=== PATIENT | female | born 2000 | race Caucasian/White ===

== ENCOUNTER 2021-10-14 13:16 | Emergency (ER) | payer BC, OTHER, MEDICAID, SELFPAY ==
[2021-10-14 13:24] VITALS: BP 116/61; PULSE 94; RESP 16; TEMP 37.2; O2SAT 98
--- NOTE | 2021-10-14 14:38 | ED.NAVMDI ---
HPI - Nausea/Vomiting/Diarrhea General Chief complaint: Nausea/Vomiting/Diarrhea Stated complaint: Nausea/Diarrhea Time Seen by Provider: 10/14/21 14:40 Source: patient, RN notes reviewed and old records reviewed Mode of arrival: ambulatory Limitations: no limitations History of Present Illness HPI Narrative: 20 year old female who presents to [facility] care with complaints of nausea with episodes of diarrhea since yesterday. Patient reports that she has decreased appetite and has only been drinking water and Gatorade.Patient reports that she had 3-4 diarrhea stools yesterday and has had 5 diarrhea stools today. Patient reports that she did eat a bagel this morning. Patient denies any abdominal paulson or any emesis.Patient has not had Covid vaccinations or any flu shot. MD elicited complaint: nausea and diarrhea Onset (ago): day(s) (since yesterday) Related Data Allergies Allergy/AdvReac Type Severity Reaction Status Date / Time No Known Allergies Allergy Unverified 08/23/16 17:11 Review of Systems Review of Systems: CONSTITUTIONAL: Denies fever, chills, or sweats. EYES: Denies visual changes, redness, or discharge. ENT: Denies rhinorrhea, congestion, sore throat, or otalgia. CARDIOVASCULAR: Denies chest pain, palpitations, or edema. RESPIRATORY: Denies cough or dyspnea. GASTROINTESTINAL: Denies abdominal pain,positive for nausea, no vomiting,positive for diarrhea. GENITOURINARY: Denies dysuria or hematuria. SKIN: Denies rash or itching. MUSCULOSKELETAL: Denies back pain, joint pain, or myalgia. NEUROLOGIC: Denies headache, numbness, or weakness reports fatigue PSYCHIATRIC:Positive for history of anxiety or depression. All systems reviewed & are unremarkable except as noted in HPI and below PMFSH Past Medical History Medical History Anxiety Asthma GERD (gastroesophageal reflux disease) Seasonal allergies Surgical History Surgical History History of tonsillectomy and adenoidectomy Hx of cholecystectomy Social History Social History (Updated 10/14/21 @ 14:46 by Romi Rubin NP) Smoking status: Current every day smoker Tobacco type: cigarettes Alcohol intake: unknown Substance use type: does not use Living arrangements: with family Gender identity (if verbalized by the patient): Female Comments At time of signature, agree with nursing past medical, surgical, social and family history. There is no relevant family history pertinent to the presenting complaint Exam Narrative: GENERAL: Well-appearing, well-nourished, and in no acute distress. HEAD: Normocephalic, atraumatic. EYES: PERRLA and EOMI. ENT: Nares clear, no rhinorrhea or epistaxis. Mucous membranes moist.TM's normal with good light reflex, throat pink with no redness no lesions or tonsils present, NECK: Supple.no lymphadenopathy CHEST: Clear to auscultation. No respiratory distress.no cough or any tachypnea noted, SAO2 98% on room air HEART: Regular rate and rhythm. No murmur heard. Normal peripheral pulses. ABDOMEN: Soft, nontender to palpation, nondistended, hypo active bowel sounds. EXTREMITIES: Normal range of motion. No edema. SKIN: Warm, dry, no rash. NEURO: No focal deficits. Alert and oriented x3. Course Course Level of Care: Express Care Visit Vital Signs Vital signs: Vital Signs Temperature 37.2 C 10/14/21 13:24 Pulse Rate 94 10/14/21 13:24 Respiratory Rate 16 10/14/21 13:24 Blood Pressure 116/61 10/14/21 13:24 Pulse Oximetry 98 10/14/21 13:24 Temperature 37.2 C 10/14/21 13:24 Pulse Rate 94 10/14/21 13:24 Respiratory Rate 16 10/14/21 13:24 Blood Pressure 116/61 10/14/21 13:24 Pulse Oximetry 98 10/14/21 13:24 MDM - Nausea/Vomiting/Diarrhea Differential Diagnosis Differential diagnosis: Likely food poisoning, gastroenteritis and other (Nausea with diarrhea) Medical Records Attesta
== END 2021-10-14 15:22 | disposition home or self-care (01) ==
PROVIDERS: Emergency Provider Registered Nurse
DX: K21.9 Gastro-esophageal reflux disease without esophagitis (principal); J45.909 Unspecified asthma, uncomplicated; F17.210 Nicotine dependence, cigarettes, uncomplicated
CPT/HCPCS: 87804; 99203; G0463